=== PATIENT | female | born 1995 | race African-American/Black ===

== ENCOUNTER → 2016-12-28 | Outpatient (REF) | payer OTHER ==
[~2016-12-28] MED LIST: CYCL5TA PO; FERR325T3 PO; LIDO5DIS36 TD; STEROID CREAM TOP
[2016-12-28 13:23] LABS: BASO % 0.7 % (0.0-1.0); EOS # 0.2 K/mm3 (0.0-0.50); EOS % 3.5 % (0.0-3.0); LARGE UNSTAINED CELL # 0.1 K/mm3 (0.0-0.4); LARGE UNSTAINED CELL % 1.2 % (0.0-4.0); LYMPH # 2.3 K/mm3 (1.5-6.5); LYMPH % 37.6 % (24.0-44.0); MEAN CORPUSCULAR HGB CONC 31.9 g/dl (32.0-36.5); MEAN CORPUSCULAR VOLUME 81.4 fl (80.0-96.0); MONO # 0.3 K/mm3 (0.0-0.8); NEUTROPHILS % 51.9 % (36.0-66.0); PLATELET COUNT, AUTOMATED 346 k/mm3 (150-450); RED CELL DISTRIBUTION WIDTH 13.8 % (11.5-14.5); WHITE BLOOD COUNT 5.8 K/mm3 (4.0-10.0)
[2016-12-28 13:44] LABS: ALBUMIN/GLOBULIN RATIO 1.21 (1.00-1.93); ALKALINE PHOSPHATASE 75 U/L (45-117); ALT/SGPT 15 U/L (12-78); ANION GAP 7 MEQ/L (8-16); AST/SGOT 18 U/L (15-37); BILIRUBIN,TOTAL 0.5 MG/DL (0.2-1.0); BLOOD UREA NITROGEN 7 MG/DL (7-18); CALCIUM LEVEL 9.1 MG/DL (8.5-10.1); CARBON DIOXIDE LEVEL 29 MEQ/L (21-32); CHLORIDE LEVEL 101 MEQ/L (98-107); CREATININE FOR GFR 0.81 MG/DL (0.55-1.02); GLOMERULAR FILTRATION RATE > 60.0 (>60); GLUCOSE, FASTING 90 MG/DL (70-105); SODIUM LEVEL 137 MEQ/L (136-145); TOTAL PROTEIN 7.3 GM/DL (6.4-8.2)
[2016-12-28 14:12] LABS: ERYTHROCYTE SEDIMENTATION RATE 3 mm/hr (0-20)
== END ==
LOC: M LABNEURO 12:59
PROVIDERS: ATTEND Psychiatry & Neurology Neurology
DX: R51 Headache (principal)

== ENCOUNTER 2017-10-01 19:01 | Emergency (ER) | payer OTHER ==
[~2017-10-01] VITALS: Ht 152.4 cm; Wt 58.8 kg
[~2017-10-01 19:01] MED LIST changes: -CYCL5TA PO; +CYCL5TAB PO; -LIDO5DIS36 TD; +LIDO5DIS41 TD
[2017-10-01] MEDS ORDERED: PRENTAB29 PO (19:18)
[2017-10-01 23:56] VITALS: BP 123/52
--- NOTE | 2017-10-02 07:24 | REPUSA ---
Clinical history: Pain. Findings: Real-time transabdominal and transvaginal ultrasound images of the pelvis were obtained. Th ere are twin live intrauterine pregnancies. The is diamniotic and dichorionitc. For fetus A, the crown rump length measures 2.9 cm. heart rate measures 163 bpm. For fetus B, the crown rump length measures 3.1 cm. heart rate measures 168 bpm. An anteverted uterus is noted. The uterus demonstrates normal echotexture and echogenicity. Anterior placenta is noted. There is no evidence of placenta previa. There is no subchorionic hemorrhage ident ified. The right ovary measures 2.8 x 2.0 x 1.7 cm. The left ovary measures 4.1 x 1.7 x 1.9 cm. No ad nexal masses are seen. Color Doppler flow is seen within both ovaries. There is no evidence of free f luid. Impression: 1. Diamniotic and dichorionic twin gestation. 2. Twin A measures 9 weeks 5 days with heart rate of 163 bpm. 3. Twin B measures 10 weeks, heart rate of 168 bpm. 4. Estimated due date is 05/02/2018.
== END 2017-10-01 23:53 | disposition home or self-care (01) ==
LOC: M ED 19:01
DX: O26.891 Other specified pregnancy related conditions, first trimester (principal); M54.5 Low back pain; M41.9 Scoliosis, unspecified; Z88.6 Allergy status to analgesic agent; Z91.040 Latex allergy status; Z3A.09 9 weeks gestation of pregnancy

== ENCOUNTER → 2018-01-22 | Outpatient (CLI) | payer OTHER, MEDICAID | LOC: M RAD 13:47 | DX: Z32.01 Encounter for pregnancy test, result positive (principal) ==